=== PATIENT | female | born 1990 | race Caucasian/White ===

== ENCOUNTER 2025-02-10 09:31 | Outpatient (AMB) | payer OTHER, SELFPAY ==
[2025-02-10 09:43] VITALS: BP 106/70; PULSE 82; TEMP 36.8; O2SAT 99; BMI 23.8
--- NOTE | 2025-02-10 09:43 | AM.OFFWIN_ITS ---
Intake Vital Signs 02/10/25 09:43 Height 5 ft 5 in Weight 143 lb BMI 23.8 BP 106/70 Blood Pressure Location Lt brachial Position Sitting Pulse 82 Pulse Source Pulse Oximeter Temp 98.3 F Temp Source Oral Pulse Oximetry (%) 99 Oxygen Delivery Method Room Air Intake Visit Reasons: [employer]IST possible ear infection Intake Note: pt presents with LT ear pain and left buccal cheek pain after experiencing gum pain- dental visit this morning and was cleared of any dental infections Allergies No Known Allergies Allergy (Verified 02/10/25 09:44) Do you need a note to return to daycare/school/sports/work: No HPI HPI Comments History of Present Illness Details History - The patient is a 34 year old female pr esenting with a suspected left ear infection x 3 days. - Her symptoms began on Thursday with gum pain, which progressed by Thursday to throbbing pain with slight swelling in her cheek. - She describes the pain as traveling an d woke up this morning with tenderness and pain in her left inner ear. - Associated symptoms include a feeling of blockage in the left ear and some mucus. - She denies fever, sore throat, or coug h. - She does not typically get ear infecti ons and does not have an established ENT specialist. [facility] Medical History (Updated 02/10/25 @ 09:56 by Ashley Sheehan PA-C) Acute otitis media, left Review of Systems Narrative Review of Systems - Constitutional: Denies fever. - ENT: Reports left-sided otalgia, tenderness, and a sensation of blockage. - Reports gum pain and mucus production. - Denies sore throat. - Respiratory: Denies cough. - Head: Reports slight cheek swelling. All systems reviewed and are unremarkable except as noted in HPI Physical Exam Exam Exam: Physical Exam General: Cooperative, healthy appearing, comfortable and no acute distress Orientation/consciousness: Patient oriented x3 Limitations: No limitations Head: Normal to inspection Ears: Hearing slightly blocked on the left side, external ears normal, EAC's normal bilaterally, TM's slightly red on the left side Nose: Normal external nose present, Normal nares present and No nasal discharge present Face and sinus: Slight swelling in the cheek, sinuses tender Mouth: Normal oral and palatal mucosa present and moist mucous membranes Throat: tonsils normal, no exudates, uvula midline, posterior oropharynx erythema Eyes: Appearance normal, both eyes and all related structures Neck: Normal visual inspection, full ROM Respiratory: Clear to auscultation bilaterally. Normal respiratory effort, able to speak in complete sentences, no cough, no respiratory distress, not tachypneic, no tripod positioning and no use of accessory muscles Cardiovascular: Regular rate and rhythm. Normal S1 and S2 Skin: No rashes or lesions noted Neuro: Patient oriented x3 Extremities: Normal to inspection and Yes no clubbing, cyanosis or edema Vital Signs: Last Vital Signs Temp 98.3 F 02/10/25 09:43 Pulse 82 02/10/25 09:43 BP 106/70 02/10/25 09:43 Pulse Ox 99 02/10/25 09:43 Oxygen Delivery Method Room Air 02/10/25 09:43 BMI result Body Mass Index 23.8 Assessment & Plan Assessment & Plan (1) Acute otitis media, left: Code(s): H66.92 - Otitis media, unspecified, left ear Plan: Patient was informed and verbally consented to the use of an ambient scribe for clinic note documentation during this visit. - VSS, pt well appearing and PE remarkable for left OM. - A prescription for amoxicillin 875 mg will be sent to the patient's pharmacy, [facility] on [address] - The treatment course is for five days. - The patient was advised to seek follow-up if symptoms do not improve. Medications: New amoxicillin 875 mg PO Q12H 10 tabs 0RF Coding Level of Care Code Est Pt Level 3 (37597) Diagnoses Acute otitis media, left H66.92
== END 2025-02-10 10:10 | disposition home or self-care (01) ==
PROVIDERS: PCP Nurse Practitioner Family; Visit Provider Physician Assistant
DX: H66.92 Otitis media, unspecified, left ear (principal)

== ENCOUNTER → 2025-02-10 09:31 | Outpatient (BNVA) | payer OTHER, SELFPAY | PROVIDERS: PCP Nurse Practitioner Family; Visit Provider Physician Assistant | DX: H66.92 Otitis media, unspecified, left ear (principal) | CPT/HCPCS: 99212 ==